=== PATIENT | female | born 1985 | race Caucasian/White ===

== ENCOUNTER 2017-08-30 14:07 | Emergency (ER) | payer OTHER ==
[2017-08-30 14:15] VITALS: BP 123/75; PULSE 70; TEMP 98.3; BMI 25.7
--- NOTE | 2017-08-30 14:25 | PDOC ---
History of Present Illness - General Chief Complaint: Pain, Acute Stated Complaint: LEFT SIDE PAIN Time Seen by Provider: 08/30/17 14:25 History Source: Patient Exam Limitations: Clinical Condition - History of Present Illness Initial Comments: 08/30/17 15:12 Patient present with complains of intermittent numbness and tingling sensation in left upper extremity and left low extremity which has been intermittent for 2 months now. pt report no pmhx. report she has been having this symptom of tingling sensation in left upper extremity and lower legs which last for a day and resolves. Denies trauma or injury. report no pain Timing/Duration: other (2 months) Severity: mild Modifying Factors: improves with: movement, rest Associated Symptoms: denies: fever/chills, nausea/vomiting, shortness of breath , weakness Aspirin Received prior to arrival: Yes: no aspirin today Beta Susan Contraindications(Core Measure): Yes: Not Prescribed Past History - Past Medical History Allergies/Adverse Reactions: Allergies Allergy/AdvReac Type Severity Reaction Status Date / Time No Known Allergies Allergy Verified 04/26/15 21:00 Home Medications: Ambulatory Orders No122/Iron/Folic Acid [ Multi Tablet] 1 tab PO DAILY 10/31/14 Methocarbamol [Robaxin -] 500 mg PO BID PRN #14 tablet 08/30/17 Naproxen 500 mg PO BID PRN #20 tablet. 08/30/17 Asthma: No Cancer: No Cardiac Disorders: No CVA: No COPD: No DVT: No Dementia: No Diabetes: No HTN: No Seizures: No Thyroid Disease: No - Reproductive History (#): 1 Para: 1 Spontaneous : 0 - Immunization History Immunization Up to Date: Yes - Suicide/Smoking/Psychosocial Hx Smoking History: Never smoked Have you smoked in the past 12 months: No Information on smoking cessation initiated: No Hx Alcohol Use: No Drug/Substance Use Hx: No Substance Use Type: None Hx Substance Use Treatment: No Review of Systems - Review of Systems Is the patient limited Tajik proficient: No Constitutional: No: Fever, Malaise, Unexplained wgt Loss HEENTM: No: Symptoms Reported, Eye Pain, Blurred Vision, Tearing, Recent change in vision, Double Vision, Cataracts, Ear Pain, Ocular Prothesis, Ear Discharge, Nose Pain, Nose Congestion, Tinnitus, Nose Bleeding, Hearing Loss, Throat Pain, Throat Swelling, Mouth Pain, Dental Problems, Difficulty Swallowing, Mouth Swelling, Other Respiratory: No: Symptoms reported, Cough, Orthopnea, Shortness of Breath, SOB with Exertion, SOB at Rest, Stridor, Wheezing, Productive cough, Hemoptysis, Other Cardiac (ROS): No: Symptoms Reported, Chest Pain, Edema, Irregular Heart Rate, Lightheadedness, Palpitations, Syncope, Chest Tightness, Other ABD/GI: No: Symptoms Reported : No: Burning, Dysuria, Incontinence, Lesions Musculoskeletal: No: Back Pain, Joint Pain, Muscle Pain, Muscle Weakness Integumentary: No: Bruising, Flushing, Lumps Neurological: Yes: Numbness, Tingling. No: Paresthesia, Weakness, Dizziness Hematologic/Lymphatic: No: Blood Clots, Easy Bleeding *Physical Exam - Vital Signs Last Vital Signs Temp Pulse Resp BP Pulse Ox 98.3 F 70 18 123/75 100 08/30/17 14:12 08/30/17 14:12 08/30/17 14:12 08/30/17 14:12 08/30/17 14:12 - Physical Exam General Appearance: Yes: Nourished, Appropriately Dressed. No: Apparent Distress HEENT: positive: Normal ENT Inspection Neck: positive: Normal Thyroid Respiratory/Chest: positive: Lungs Clear Cardiovascular: positive: Regular Rhythm, Regular Rate Gastrointestinal/Abdominal: positive: Normal Bowel Sounds. negative: Tender Musculoskeletal: positive: Normal Inspection. negative: Decreased Range of Motion, Muscle Spasm, Vertebral Tenderness Extremity: positive: Normal Capillary Refill, Normal Inspection, Normal Range of Motion. negative: Tender, Swelling, Calf Tenderness, Erythema Integumentary: positive: Normal Color Neurologic: positive: Fully Oriented, Alert, Normal Mood/Affect, Motor Strength 5/5 (b/l upper and lower extremities) Deep Tendon Reflexes: Ankle (L): 4+, Ankle (R): 4+, Knee (L): 4+, Knee (R): 4+, Bicep (L): 4+, Bicep (R): 4+, Tricep (L): 4+, Tricep (R): 4+ ED Treatment Course - LABORATORY CBC & Chemistry Diagram: 08/30/17 15:23 Medical Decision Making - Medical Decision Making 08/30/17 15:18 Patient present with intermittent tingling sensation in left UE/LE w/o pain or trauma order chemistry and electrolytes level order x-rays of cervical and lumbosacral treat based on imaging results 08/30/17 16:40 review of x-rays of cervical spine and lumbosacral with no significant findings. chemistry labs with no sig abnormality. pt stable for home d/c with neuro follow-up *DC/Admit/Observation/Transfer Diagnosis at time of Disposition: Peripheral neuropathy Qualifiers: Peripheral neuropathy type: idiopathic neuropathy, unspecified Qualified Code(s ): G60.9 - Hereditary and idiopathic neuropathy, unspecified - Discharge Dispostion Disposition: HOME Condition at time of disposition: Stable Decision to Admit order: No - Prescriptions Prescriptions: Methocarbamol [Robaxin -] 500 mg PO BID PRN #14 tablet PRN Reason: Muscle Spasms Naproxen 500 mg PO BID PRN #20 tablet. PRRae Reason: Moderate Pain - Referrals Referrals: Fran Venegas MD [Primary Care Provider] - Ирина Justice MD [Non Staff, Medical] - - Patient Instructions Printed Discharge Instructions: Peripheral Neuropathy Additional Instructions: rest upper arms and lower legs. refrain from sleeping on left shoulder. Follow- up with neurology and take medications as prescribed - Post Discharge Activity
[2017-08-30 16:10] LABS: ALBUMIN 4.3 g/dl (3.4-5.0); ALK PHOS 45 U/L (45-117); ANION GAP 8 (8-16); BILIRUBIN,TOTAL 1.1 mg/dL (0.2-1.0); BLOOD UREA NITROGEN 10 mg/dL (7-18); CALCIUM 8.8 mg/dL (8.5-10.1); CHLORIDE 107 mmol/L (98-107); CO2 27 mmol/L (21-32); CREATININE 0.6 mg/dL (0.55-1.02); GLUCOSE,RANDOM 93 mg/dL (74-106); POTASSIUM 3.8 mmol/L (3.5-5.1); SGOT/AST 15 U/L (15-37); SGPT/ALT 21 U/L (12-78); SODIUM 142 mmol/L (136-145); TOT PROT 7.7 g/dl (6.4-8.2)
== END 2017-08-30 16:46 | disposition home or self-care (01) ==
LOC: JERFT 14:07
DX: G60.9 Hereditary and idiopathic neuropathy, unspecified (principal)
CPT/HCPCS: 36415; 72050-TC-FY; 72100-TC-FY; 80051; 80053; 99281-25

== ENCOUNTER 2021-11-03 10:06 | Emergency (ER) | payer OTHER ==
[2021-11-03 10:20] VITALS: BP 132/66; PULSE 77; RESP 18; TEMP 97.9; BMI 27.1
[2021-11-03] MEDS ORDERED: KETOROLAC TROMETHAMINE 60 MG/2 ML VIAL IM ONE (11:22)
[2021-11-03] MEDS ORDERED: METHOCARBAMOL 500 MG TABLET PO ONE (11:22)
[2021-11-03] MEDS ORDERED: LIDOCAINE 5% TOPICAL PATCH TP ONE (11:22)
[2021-11-03] MEDS ORDERED: ACETAMINOPHEN 325 MG TABLET (FP) PO ONE (11:22)
[2021-11-03] MEDS ORDERED: ACETAMINOPHEN 325 MG TABLET (FP) ONE (11:33)
[2021-11-03] MEDS ORDERED: METHOCARBAMOL 500 MG TABLET ONE (11:33)
[2021-11-03] MEDS ORDERED: LIDOCAINE 5% TOPICAL PATCH ONE (11:33)
[2021-11-03] MEDS ORDERED: KETOROLAC TROMETHAMINE 30 MG/1 ML VIAL ONE ×2 (11:33→11:34)
[2021-11-03 12:51] LABS: HCG,QUALITATIVE URINE Negative
[2021-11-03 13:00] LABS: EPI CELLS 32 /uL (0-25.1); HYALINE CASTS 0 /uL (0-3.1); PH,URINE 7.5 (5.0-8.0); URINE APPEARANCE CLEAR; URINE BACTERIA 340 /uL (0-1359); URINE BILIRUBIN NEGATIVE (NEGATIVE); URINE COLOR YELLOW; URINE GLUCOSE (UA) NEGATIVE (NEGATIVE); URINE KETONE TRACE (NEGATIVE); URINE LEUK ESTERASE 2+ (NEGATIVE); URINE NITRITE NEGATIVE (NEGATIVE); URINE PROTEIN NEGATIVE (NEGATIVE); URINE RBC 15 /uL (0-23.9); URINE UROBILINOGEN 0.2 mg/dL (0.2-1.0); URINE WBC 10 /uL (0-25.8)
[2021-11-03] MEDS ORDERED: DEXAMETHASONE LIQUID 0.5 MG/5 ML PO ONE (13:27)
[2021-11-03] MEDS ORDERED: DEXAMETHASONE SOD PHOSPHATE 10 MG/1 ML VIAL ONE (13:30)
[2021-11-03] MEDS ORDERED: LIDOCAINE PATCH REMOVAL MC SCH (22:00)
== END 2021-11-03 14:15 | disposition left against medical advice (07) ==
LOC: JERFT 10:06
PROC: 3E023GC Introduction of Other Therapeutic Substance into Muscle, Percutaneous Approach (ICD-10-PCS; principal; 2021-11-03)
DX: M54.42 Lumbago with sciatica, left side (principal)
CPT/HCPCS: 72131-TC; 81003; 84703; 87086; 99284-25